=== PATIENT | male | born 1990 | race Asian ===

== ENCOUNTER → 2019-05-26 | Emergency (ER) | payer OTHER ==
[~2019-05-26] VITALS: Ht 182.9 cm; Wt 74.8 kg
[~2019-05-26] MED LIST: MUPIROCIN15 GM TOPIC
[2019-05-26 17:13] VITALS: BP 121/78
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
--- NOTE | 2019-05-26 17:22 | NUR ---
ED Nurse Note: patient presented to ED with officer [id number]
--- NOTE | 2019-05-26 17:43 | NUR ---
ED Nurse Note: WOUND CLEANING DONE ON THE AFFECTED AREA
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
[2019-05-26 18:32] VITALS: BP 121/78
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
== END | disposition home or self-care (01) ==
LOC: EMR 19:03
DX: S60.311A Abrasion of right thumb, initial encounter (principal); Z20.9 Contact with and (suspected) exposure to unspecified communicable disease; Y35.891A Legal intervention involving other specified means, law enforcement official injured, initial encounter; Y92.9 Unspecified place or not applicable
CPT/HCPCS: 86703; 86706; 86803; 99283